=== PATIENT | female | born 1975 | race Hispanic/Latino ===

== ENCOUNTER 2020-11-21 14:35 | Emergency (ER) | payer MEDICARE ==
[~2020-11-21] VITALS: Ht 172.7 cm; Wt 96.2 kg
[2020-11-21] MEDS ORDERED: SODIUM CHLORIDE 0.9% 1000ML 1,000 ML IV STA (14:52)
[2020-11-21] MEDS ORDERED: DEXAMETHASONE 10MG/ML PF INJ INJ ONE (15:00)
[2020-11-21] MEDS ORDERED: DEXAMETHASONE SOD PHOS 10 MG/1 ML VIAL IV ONE (15:15)
[2020-11-21] MEDS ORDERED: DEXAMETHASONE SOD PHOS INJ 4 MG/ML VIAL ONE (15:29)
[2020-11-21] MEDS ORDERED: SODIUM CHLORIDE 0.9% 1000ML 1,000 ML ONE (15:29)
[2020-11-21] MEDS ORDERED: CEFDINIR300 MG PO (15:58)
[2020-11-21] MEDS ORDERED: CEFTRIAXONE SOD 1 GM VIAL IV ONE (16:00)
[2020-11-21] MEDS ORDERED: CEFTRIAXONE SOD 1 GM VIAL ONE (16:12)
[2020-11-21] MEDS ORDERED: CEFTRIAXONE SOD 1 GM 50 ML IV ONE (16:15)
== END 2020-11-21 16:30 | disposition home or self-care (01) ==
LOC: FSED 14:52
DX: R42 Dizziness and giddiness (principal); R53.1 Weakness; N39.0 Urinary tract infection, site not specified; F31.9 Bipolar disorder, unspecified
CPT/HCPCS: 70450; 71045; 80053; 81003; 82553; 84484; 85025; 93005; 96374; 96376; 99284; J0696; J1100; J7030